=== PATIENT | male | born 1995 | race Caucasian/White ===

== ENCOUNTER 2017-03-10 23:30 | Emergency (ER) | payer OTHER ==
[~2017-03-10] VITALS: Ht 170.2 cm; Wt 86.4 kg
[2017-03-11] MEDS ORDERED: TESS100C PO (03:21)
[2017-03-11] MEDS ORDERED: AZIT-12 PO (03:21)
[2017-03-11] MEDS ORDERED: BENZONATATE 100 MG CAP PO ONE (03:30)
[2017-03-11] MEDS ORDERED: ALBUTEROL 90 MCG/ACT 8GM HFA INHALER INH ONE (03:30)
[2017-03-11] MEDS ORDERED: AZITHROMYCIN 250 MG TAB PO ONE (03:30)
[2017-03-11 04:11] VITALS: BP 128/62
== END 2017-03-11 04:11 | disposition home or self-care (01) ==
LOC: M ED 23:30
DX: J02.0 Streptococcal pharyngitis (principal)